=== PATIENT | female | born 1960 | race Caucasian/White ===

== ENCOUNTER 2016-06-07 21:22 | Emergency (ER) | payer MEDICAID ==
[~2016-06-07] VITALS: Ht 152.4 cm; Wt 50.0 kg
[~2016-06-07 21:22] MED LIST: INSU100V5 SQ-INSULIN; METO25TA35 PO
[2016-06-07] MEDS ORDERED: BRIM5DRO2 EACHEYE (21:36)
[2016-06-07 22:26] LABS: ASPARTATE AMINO TRANSFERASE 16 U/L (15-37); BLOOD UREA NITROGEN 21 mg/dL (7-18)
[2016-06-08 01:03] VITALS: BP 125/74
== END 2016-06-08 01:06 | disposition home or self-care (01) ==
LOC: ED 23:59
DX: H53.133 Sudden visual loss, bilateral (principal); H40.9 Unspecified glaucoma; I10 Essential (primary) hypertension; E11.9 Type 2 diabetes mellitus without complications; J45.909 Unspecified asthma, uncomplicated
CPT/HCPCS: 36415; 70450; 80053; 85025; 85610; 85730

== ENCOUNTER 2017-12-07 10:43 | Emergency (ER) | payer MEDICAID ==
[~2017-12-07] VITALS: Ht 152.4 cm; Wt 51.9 kg
[~2017-12-07 10:43] MED LIST changes: +BRIM5DRO2 EACHEYE
[2017-12-07 10:56] VITALS: BP 114/73
== END 2017-12-07 11:32 | disposition home or self-care (01) ==
LOC: ED 11:26
DX: J00 Acute nasopharyngitis [common cold] (principal); I10 Essential (primary) hypertension; E11.9 Type 2 diabetes mellitus without complications; J45.909 Unspecified asthma, uncomplicated
CPT/HCPCS: 71046; 99284

== ENCOUNTER → 2018-05-09 | Outpatient (CLI) | payer MEDICAID | END | disposition home or self-care (01) | LOC: CFH 11:26 | PROVIDERS: ATTEND Nurse Practitioner Family | DX: Z12.31 Encounter for screening mammogram for malignant neoplasm of breast (principal) | CPT/HCPCS: 77063; 77067 ==

== ENCOUNTER 2018-05-23 13:16 | Emergency (ER) | payer MEDICAID ==
[~2018-05-23] VITALS: Ht 154.9 cm; Wt 51.3 kg
--- NOTE | 2018-05-23 13:37 | NUR ---
PT AMBULATED TO ROOM WITH STEADY GAIT. PT REPORTS NAUSEA, CP, COUGH, FEVER, CONGETION, AND SORE THROAT. REPORTS CP SINCE SUNDAY THAT GETS WORSE WHEN SHE COUGHS. PT IS ALERT, ORIENTED, WITH NAD. PT IS CONNECTED TO THE MONITOR. CALL LIGHT WITHIN REACH. FAMILY AT BEDSIDE.
[2018-05-23] MEDS ORDERED: KETOROLAC 30 MG/1 ML ONE (13:53)
--- NOTE | 2018-05-23 13:56 | NUR ---
PT AMBULATED TO THE BATHROOM WITH STEADY GAIT TO PROVIDE A URINE SAMPLE.
[2018-05-23] MEDS ORDERED: KETOROLAC 30 MG/1 ML IM ONE (14:00)
--- NOTE | 2018-05-23 14:02 | NUR ---
PT MEDICATED PER ORDER. PT TOLERATED WELL.
[2018-05-23 14:19] LABS: BASOPHILS # (AUTO) 0.02 x10^3/uL (0-0.1); BASOPHILS % (AUTO) 0 % (0-1); EOSINOPHILS % (AUTO) 0 % (1-7); LYMPHOCYTES # (AUTO) 0.98 x10^3/uL (1-3.4); LYMPHOCYTES % (AUTO) 17 % (22-44); MD NO; MEAN CORPUSCULAR HEMOGLOBIN 32.1 pg (27.0-34.8); MEAN CORPUSCULAR HGB CONC 34.8 g/dL (32.4-35.8); MEAN CORPUSCULAR VOLUME 92.2 fL (80-100); MEAN PLATELET VOLUME 9.4 fL (7.4-10.4); MONOCYTES # (AUTO) 0.29 x10^3/uL (0.2-0.8); MONOCYTES % (AUTO) 5 % (2-9); NEUTROPHILS # (AUTO) 4.45 x10^3/uL (1.8-6.8); NEUTROPHILS % (AUTO) 78 % (42-75); PLATELET COUNT 184 x10^3/uL (130-400); RED BLOOD COUNT 3.92 x10^6/uL (3.82-5.3); RED CELL DISTRIBUTION WIDTH 12.9 % (9.6-15.2)
[2018-05-23 14:23] LABS: MICROSCOPIC INDICATED
[2018-05-23 14:24] LABS: CULTURE INDICATED? YES
[2018-05-23 14:27] LABS: ALANINE AMINOTRANSFERASE 16 U/L (12-78); ALBUMIN 3.1 g/dL (3.4-5.0); ANION GAP 5 mmol/L (5-15); CALCIUM 8.5 mg/dL (8.5-10.1); CHLORIDE 105 mmol/L (98-107); CREATININE 0.99 mg/dL (0.55-1.02)
[2018-05-23 14:29] LABS: ALKALINE PHOSPHATASE 75 U/L (45-117); BILIRUBIN,TOTAL 0.5 mg/dL (0.2-1.0); TOTAL PROTEIN 7.3 g/dL (6.4-8.2)
--- NOTE | 2018-05-23 14:54 | NUR ---
PT IS RESTING IN BED TALKING WITH FAMILY, RESPIRATIONS EQUAL AND NON LABORED. NAD. PT IS CONNNECTED ON THE MONITOR. CALL LIGHT WITHIN REACH.
--- NOTE | 2018-05-23 16:15 | NUR ---
PT GIVEN WATER, ELIECER MALLOY MD.
[2018-05-23 16:16] VITALS: BP 92/47
--- NOTE | 2018-05-23 17:30 | NUR ---
Patient given discharge instructions and they have confirmed that they understand the instructions. Patient ambulatory with steady gait.
== END 2018-05-23 17:31 | disposition home or self-care (01) ==
LOC: ED 17:05
DX: N30.00 Acute cystitis without hematuria (principal); J45.31 Mild persistent asthma with (acute) exacerbation; R11.2 Nausea with vomiting, unspecified; E11.9 Type 2 diabetes mellitus without complications; I10 Essential (primary) hypertension
CPT/HCPCS: 36415; 71045; 80053; 81001; 83605; 83690; 85025; 87077; 87086; 93005; 96372; 99284; J1885; 87186

== ENCOUNTER 2018-05-30 15:02 | Emergency (ER) | payer MEDICAID ==
[~2018-05-30] VITALS: Ht 149.9 cm; Wt 50.8 kg
[2018-05-30 15:06] VITALS: BP 127/71
[2018-05-30 15:28] LABS: BASOPHILS # (AUTO) 0.02 x10^3/uL (0-0.1); BASOPHILS % (AUTO) 0 % (0-1); EOSINOPHILS # (AUTO) 0.63 x10^3/uL (0-0.4); EOSINOPHILS % (AUTO) 9 % (1-7); LYMPHOCYTES % (AUTO) 27 % (22-44); MD NO; MEAN CORPUSCULAR HGB CONC 33.3 g/dL (32.4-35.8); MEAN CORPUSCULAR VOLUME 93.1 fL (80-100); MEAN PLATELET VOLUME 10.3 fL (7.4-10.4); MONOCYTES # (AUTO) 0.33 x10^3/uL (0.2-0.8); MONOCYTES % (AUTO) 5 % (2-9); NEUTROPHILS # (AUTO) 4.04 x10^3/uL (1.8-6.8); NEUTROPHILS % (AUTO) 58 % (42-75); PLATELET COUNT 217 x10^3/uL (130-400); RED BLOOD COUNT 4.42 x10^6/uL (3.82-5.3); RED CELL DISTRIBUTION WIDTH 12.7 % (9.6-15.2)
[2018-05-30] MEDS ORDERED: ALBUTEROL/IPRATROPIUM 2.5MG/0.5MG, 3 ML NPPB SCH (15:30)
[2018-05-30 15:39] LABS: ALBUMIN 3.1 g/dL (3.4-5.0); ANION GAP 5 mmol/L (5-15); CALCIUM 8.7 mg/dL (8.5-10.1); CHLORIDE 106 mmol/L (98-107); CREATININE 0.97 mg/dL (0.55-1.02)
--- NOTE | 2018-05-30 15:41 | NUR ---
Pt presents for continued cough and SOB. Pt seen here one week ago and dx'd with UTI and URI. Been taking abx as rxd. Pt states UTI sx have resolved but cough has not and has gotten worse. Pt states frequent cough, not much sputum.
[2018-05-30 15:42] LABS: TROPONIN I < 0.015 ng/mL (0.000-0.045)
[2018-05-30] MEDS ORDERED: ALBUTEROL/IPRATROPIUM 2.5MG/0.5MG, 3 ML ONE (15:52)
== END 2018-05-30 16:37 | disposition home or self-care (01) ==
LOC: ED 16:16
DX: R06.00 Dyspnea, unspecified (principal); J00 Acute nasopharyngitis [common cold]; I10 Essential (primary) hypertension; E11.9 Type 2 diabetes mellitus without complications; J45.909 Unspecified asthma, uncomplicated
CPT/HCPCS: 36415; 71045; 80048; 82040; 83880; 84484; 85025; 93005; 94640; 99284; J7620

== ENCOUNTER 2018-06-02 23:40 | Emergency (ER) | payer MEDICAID ==
[~2018-06-02] VITALS: Ht 149.9 cm; Wt 50.8 kg
[2018-06-02 23:42] VITALS: BP 161/82
--- NOTE | 2018-06-02 23:51 | NUR ---
PT REPORTS ITCHING AFTER ABX STARTED AND IS STILL TAKING MEDS.
[2018-06-03] MEDS ORDERED: FAMOTIDINE 20 MG TABLET PO ONE
[2018-06-03] MEDS ORDERED: FAMOTIDINE 20 MG TABLET ONE (00:09)
== END 2018-06-03 00:34 | disposition home or self-care (01) ==
LOC: ED 06-03 00:23
DX: L27.0 Generalized skin eruption due to drugs and medicaments taken internally (principal); T36.1X5A Adverse effect of cephalosporins and other beta-lactam antibiotics, initial encounter; E78.5 Hyperlipidemia, unspecified; E11.9 Type 2 diabetes mellitus without complications; Y92.89 Other specified places as the place of occurrence of the external cause
CPT/HCPCS: 99283; J7512

== ENCOUNTER 2020-11-24 17:45 | Emergency (ER) | payer MEDICAID ==
[~2020-11-24] VITALS: Ht 157.5 cm; Wt 54.0 kg
[2020-11-24 19:50] VITALS: BP 123/61
== END 2020-11-24 22:30 | disposition home or self-care (01) ==
LOC: ED 18:54
DX: H53.133 Sudden visual loss, bilateral (principal); I10 Essential (primary) hypertension